=== PATIENT | female | born 1985 | race African-American/Black ===

== ENCOUNTER 2020-05-15 04:59 | Inpatient (IN) ==
[2020-05-15] MEDS ORDERED: FAMOTIDINE 20 MG/2 ML VIAL IV ONE (05:07)
[2020-05-15] MEDS ORDERED: ceFAZolin 2,000 MG in PREMIX 1 EACH IV ONE (05:07)
[2020-05-15] MEDS ORDERED: CITRIC ACID/SODIUM CITRATE 30 ML UDCUP PO ONE (05:07)
[2020-05-15] MEDS ORDERED: OXYTOCIN/LR 20 UNIT/1,000 ML BAG IV ONE ×2 (05:09→08:48)
[2020-05-15] MEDS ORDERED: LACTATED RINGERS 1,000 ML IV SCH (05:30)
[2020-05-15 06:19] LABS: Basophils % 0.1 % (0.0-0.8); Eosinophils % 0.5 % (0.00-10.9); Hematocrit 34.7 VOL% (35.7-47.0); Hemoglobin 12.2 GM/DL (12.0-16.0); Immature Granulocytes Absolute 0.09 #; Lymphocytes # 2.6 10*3/uL (1.4-4.0); Mean Corpuscular HGB Conc 35.2 GM/DL (32-36); Mean Corpuscular Volume 88.1 FL (87-102); Mean Platelet Volume 12.2 FL (9.6-12.0); Monocytes % 7.6 % (1.7-12.7); Neutrophils % 60.8 % (38.7-73.9); Platelet Count 158 T/CUMM (130-400); Red Blood Count 3.94 MC/CUMM (3.8-5.5); Red Cell Distribution Width 12.7 % (9.3-17.3); White Blood Count 8.8 T/CUMM (4-12)
[2020-05-15 06:31] LABS: Albumin 2.6 G/DL (3.4-5.0); Bilirubin,Total 0.8 MG/DL (0.2-1.0); Calcium 8.4 MG/DL (8.5-10.1); Osmolality,Calculated 273.5 MOS/KG (273-304); Total Protein 6.3 G/DL (6.4-8.3)
[2020-05-15] MEDS ORDERED: PHENYLEPHRINE 1 MG/10 ML SYRINGE IV ONE (07:07)
[2020-05-15] MEDS ORDERED: ROPIVACAINE 0.5% 30 ML VIAL ONE (07:07)
[2020-05-15] MEDS ORDERED: DEXAMETHASONE 4 MG/1 ML VIAL ONE (07:08)
[2020-05-15] MEDS ORDERED: KETOROLAC 60 MG/2 ML VIAL IM ONE (07:08)
[2020-05-15] MEDS ORDERED: ONDANSETRON 4 MG/2 ML VIAL ONE (07:08)
[2020-05-15] MEDS ORDERED: BUPIVACAINE SPINAL 0.75% 2 ML AMP SPINAL ONE (07:08)
[2020-05-15] MEDS ORDERED: fentaNYL 100 MCG/2 ML VIAL ONE (07:08)
[2020-05-15] MEDS ORDERED: MORPHINE 10 MG/10 ML VIAL ONE (07:08)
[2020-05-15 08:13] LABS: Cord Arterial Blood HCO3 16.9 MMOL/L
[2020-05-15 08:16] LABS: Cord Venous Blood HCO3 23.3 MMOL/L; Cord Venous Blood PCO2 47.5 MMHG; Cord Venous Blood PO2 23.6 MMHG
[2020-05-15 08:38] LABS: Apearance,Urine CLEAR (Clear); Bacteria,Urine Occasional /HPF (Few); Bilirubin,Urine Negative (Negative); Blood, Urine Negative (Negative); Glucose,Urine (UA) Negative (Negative); Ketones,Urine 5 mg/dL (Negative); Mucus,Urine Occasional /LPF (Occasional); Nitrite,Urine Negative (Negative); Protein,Urine Negative; RBC,Urine 1 /HPF (0-4); Squamous Epithelial Cell,Urine Occasional /HPF (0-10); Urine Color Yellow (Yellow); Urine Specific Gravity 1.012 (1.001-1.035); Urine Urobilinogen < 2.0 EU/DL (0.2-1.0); WBC,Urine <1 /HPF (0-6)
[2020-05-15] MEDS ORDERED: ONDANSETRON 4 MG/2 ML VIAL IV PRN (08:48)
[2020-05-15] MEDS ORDERED: RHO(D) IMMUNE GLOBULIN 300 MCG SYRINGE IM ONE (08:48)
[2020-05-15] MEDS ORDERED: ACETAMINOPHEN 325 MG TABLET PO PRN (08:48)
[2020-05-15] MEDS ORDERED: ceFAZolin 1,000 MG in SYRINGE 1 EACH IV SCH (09:00)
[2020-05-15] MEDS ORDERED: hydrOXYzine HCL 25 MG/1 ML VIAL IM PRN (10:36)
[2020-05-15] MEDS ORDERED: HYDROmorphone 2 MG/1 ML VIAL IV PRN (10:36)
[2020-05-15] MEDS ORDERED: diphenhydrAMINE 50 MG/1 ML VIAL IV PRN (10:36)
[2020-05-15] MEDS: KETOROLAC 30 MG/1 ML VIAL IV SCH ×2 (15:50→21:30)
[2020-05-15] MEDS: ceFAZolin 1,000 MG in SYRINGE 1 EACH IV SCH ×2 (15:51→23:54)
[2020-05-15 16:04] LABS: Basophils % 0.1 % (0.0-0.8); Hematocrit 36.5 VOL% (35.7-47.0); Hemoglobin 12.7 GM/DL (12.0-16.0); Immature Granulocytes % 1.3 %; Immature Granulocytes Absolute 0.22 #; Lymphocytes # 0.9 10*3/uL (1.4-4.0); Lymphocytes % 5.4 % (21.3-54.2); Mean Corpuscular HGB Conc 34.8 GM/DL (32-36); Mean Corpuscular Volume 90.1 FL (87-102); Mean Platelet Volume 12.1 FL (9.6-12.0); Neutrophils % 91.2 % (38.7-73.9); Platelet Count 165 T/CUMM (130-400); Red Blood Count 4.05 MC/CUMM (3.8-5.5); Red Cell Distribution Width 12.7 % (9.3-17.3); White Blood Count 16.4 T/CUMM (4-12)
[2020-05-15 17:01] LABS: Lymphocytes 5 % (20-55); Platelet Estimate Normal; Segmented Neutrophils 94 % (50-85); Total Cells Counted 100
[2020-05-15] MEDS: LACTATED RINGERS 1,000 ML IV SCH ×2 (17:30→17:36)
[2020-05-15] MEDS: IBUPROFEN 800 MG TABLET PO PRN (18:39)
[2020-05-15] MEDS: oxyCODONE/ACETAMINOPHEN 5-325 MG TABLET PO PRN (18:39)
[2020-05-15] MEDS: DOCUSATE SODIUM 100 MG CAPSULE PO SCH (22:02)
[2020-05-16] MEDS: KETOROLAC 30 MG/1 ML VIAL IV SCH ×2 (02:09→08:57)
[2020-05-16] MEDS: IBUPROFEN 800 MG TABLET PO PRN ×2 (03:40→20:03)
[2020-05-16] MEDS: oxyCODONE/ACETAMINOPHEN 5-325 MG TABLET PO PRN ×4 (03:40→22:21)
[2020-05-16 07:00] LABS: Basophils % 0.1 % (0.0-0.8); Hematocrit 30.8 VOL% (35.7-47.0); Hemoglobin 10.9 GM/DL (12.0-16.0); Immature Granulocytes % 2.2 %; Immature Granulocytes Absolute 0.34 #; Lymphocytes # 2.2 10*3/uL (1.4-4.0); Lymphocytes % 13.9 % (21.3-54.2); Mean Corpuscular HGB Conc 35.4 GM/DL (32-36); Mean Corpuscular Volume 89.5 FL (87-102); Mean Platelet Volume 12.7 FL (9.6-12.0); Monocytes % 8.4 % (1.7-12.7); Neutrophils % 75.4 % (38.7-73.9); Platelet Count 164 T/CUMM (130-400); Red Blood Count 3.44 MC/CUMM (3.8-5.5); Red Cell Distribution Width 12.9 % (9.3-17.3); White Blood Count 15.6 T/CUMM (4-12)
[2020-05-16] MEDS: DOCUSATE SODIUM 100 MG CAPSULE PO SCH ×2 (09:00→20:03)
[2020-05-16] MEDS: MULTIVITAMIN (PRENATAL) TABLET PO SCH (09:00)
[2020-05-16] MEDS: MAGNESIUM HYDROXIDE SUSP 30 ML UDCUP PO PRN ×2 (10:12→20:03)
[2020-05-16] MEDS: SIMETHICONE CHEW 80 MG TABLET PO PRN (20:03)
[2020-05-17] MEDS: IBUPROFEN 800 MG TABLET PO PRN (05:58)
[2020-05-17] MEDS: oxyCODONE/ACETAMINOPHEN 5-325 MG TABLET PO PRN (05:58)
[2020-05-17] MEDS ORDERED: BISACODYL 10 MG SUPP RECTAL ONE (08:26)
[2020-05-17] MEDS: MULTIVITAMIN (PRENATAL) TABLET PO SCH (08:40)
[2020-05-17] MEDS: DOCUSATE SODIUM 100 MG CAPSULE PO SCH (08:40)
[2020-05-17] MEDS: SIMETHICONE CHEW 80 MG TABLET PO PRN (08:40)
[2020-05-17 09:13] VITALS: BP 111/77
== END 2020-05-17 12:35 | disposition home or self-care (01) | DRG 785 ==
LOC: N.LD 04:59 → N.OB 14:20
PROVIDERS: ADMIT Obstetrics & Gynecology; ATTEND Obstetrics & Gynecology

== ENCOUNTER 2022-11-04 20:57 | Observation (INO) ==
[2022-11-04] MEDS ORDERED: ONDANSETRON 4 MG/2 ML VIAL IV STA (22:43)
[2022-11-04] MEDS ORDERED: SODIUM CHLORIDE 0.9% 1,000 ML IV STA (22:43)
[2022-11-04 23:40] LABS: Basophils % 0.1 % (0.0-0.8); Eosinophils % 0.1 % (0.00-10.9); Hematocrit 40.6 VOL% (35.7-47.0); Hemoglobin 14.1 GM/DL (12.0-16.0); Immature Granulocytes % 0.5 %; Immature Granulocytes Absolute 0.09 #; Lymphocytes # 0.6 10*3/uL (1.4-4.0); Lymphocytes % 3.2 % (21.3-54.2); Mean Corpuscular HGB Conc 34.7 GM/DL (32-36); Mean Platelet Volume 12.2 FL (9.6-12.0); Monocytes # 1.2 10*3/uL (0.11-0.8); Monocytes % 6.4 % (1.7-12.7); Neutrophils % 89.7 % (38.7-73.9); Platelet Count 246 T/CUMM (130-400); Red Blood Count 4.51 MC/CUMM (3.8-5.5); Red Cell Distribution Width 11.9 % (9.3-17.3); White Blood Count 18.94 T/CUMM (4-12)
[2022-11-05 00:03] LABS: Albumin 4.6 G/DL (3.4-5.0); Bilirubin,Total 1.1 MG/DL (0.20-1.00); Calcium 9.5 MG/DL (8.5-10.1); Potassium 3.3 MMOL/L (3.5-5.1); Total Protein 8.4 G/DL (6.4-8.2)
[2022-11-05] MEDS ORDERED: MORPHINE 2 MG/1 ML SYRINGE IV STA (00:39)
[2022-11-05 00:52] LABS: Bacteria,Urine Few /HPF (Few); Mucus,Urine Many /LPF (Occasional); RBC,Urine 1 /HPF (0-4); Squamous Epithelial Cell,Urine Few /HPF (0-10)
[2022-11-05 00:53] LABS: Urine Appearance Slightly Cloudy (Clear); Urine Color Yellow (Yellow); Urine Specific Gravity >= 1.030 (1.001-1.035)
[2022-11-05 00:54] LABS: Bilirubin,Urine Negative (Negative); Blood, Urine Negative (Negative); Glucose,Urine (UA) Negative (Negative); Ketones,Urine 80 mg/dL (Negative); Nitrite,Urine Negative (Negative); Protein,Urine 100 mg/dL (Negative); Urine Urobilinogen 0.2 eU/dL (<2.0)
[2022-11-05] MEDS ORDERED: HYDROmorphone 1 MG/1 ML SYRINGE IV STA (04:12)
[2022-11-05] MEDS ORDERED: ONDANSETRON 4 MG/2 ML VIAL IV STA (04:13)
[2022-11-05] MEDS ORDERED: LIDOCAINE 1%/EPI INJ 20 ML VIAL ONE (04:34)
[2022-11-05] MEDS ORDERED: BUPIVACAINE MPF 0.25% 10 ML VIAL ONE (04:34)
[2022-11-05] MEDS ORDERED: TISSUE ADHESIVE 1 EACH APPLICATOR TOP ONE (04:34)
[2022-11-05] MEDS ORDERED: fentaNYL 100 MCG/2 ML VIAL ONE (04:42)
[2022-11-05] MEDS ORDERED: propofoL 200 MG/20 ML VIAL IV ONE (05:13)
[2022-11-05] MEDS ORDERED: ONDANSETRON 4 MG/2 ML VIAL ONE (05:13)
[2022-11-05] MEDS ORDERED: DEXAMETHASONE 4 MG/1 ML VIAL ONE (05:13)
[2022-11-05] MEDS ORDERED: LACTATED RINGERS 1,000 ML IV ONE ×2 (05:13→11:56)
[2022-11-05] MEDS ORDERED: SEVOFLURANE 1 UNIT/15 MINUTE INH ONE (05:13)
[2022-11-05] MEDS ORDERED: LIDOCAINE 2% 5 ML VIAL ONE (05:13)
[2022-11-05] MEDS ORDERED: SUCCINYLCHOLINE 200 MG/10 ML VIAL ONE (05:13)
[2022-11-05] MEDS ORDERED: KETOROLAC 30 MG/1 ML VIAL ONE (05:19)
[2022-11-05] MEDS ORDERED: NEOSTIGMINE 10 MG/10 ML VIAL ONE (05:25)
[2022-11-05] MEDS ORDERED: GLYCOPYRROLATE 0.4 MG/2 ML VIAL ONE (05:25)
[2022-11-05] MEDS ORDERED: PHENYLEPHRINE 1 MG/10 ML SYRINGE IV ONE (05:47)
[2022-11-05] MEDS ORDERED: HYDROmorphone 1 MG/1 ML SYRINGE IV PRN (06:57)
[2022-11-05] MEDS ORDERED: ACETAMINOPHEN 325 MG TABLET PO PRN (06:57)
[2022-11-05] MEDS: SODIUM CHLORIDE 0.9% 1,000 ML IV SCH (07:15)
[2022-11-05] MEDS: PIPERACILLIN/TAZOBACTAM 3,375 MG in SODIUM CHLORIDE 0.9% 100 ML IV SCH ×2 (07:20→16:21)
[2022-11-05] MEDS: MORPHINE 2 MG/1 ML SYRINGE IV PRN ×2 (09:18→17:00)
[2022-11-05] MEDS: PANTOPRAZOLE 40 MG VIAL IV SCH (09:18)
[2022-11-05] MEDS: ONDANSETRON 4 MG/2 ML VIAL IV PRN ×2 (09:18→18:51)
[2022-11-05] MEDS ORDERED: MORPHINE 2 MG/1 ML SYRINGE IV PRN (11:40)
[2022-11-06] MEDS: SODIUM CHLORIDE 0.9% 1,000 ML IV SCH ×3 (00:40→07:07)
[2022-11-06] MEDS: PIPERACILLIN/TAZOBACTAM 3,375 MG in SODIUM CHLORIDE 0.9% 100 ML IV SCH ×2 (00:41→08:23)
[2022-11-06] MEDS: KETOROLAC 15 MG/1 ML VIAL IV SCH ×2 (04:51→12:07)
[2022-11-06 05:45] LABS: Basophils % 0.1 % (0.0-0.8); Eosinophils # 0.2 10*3/uL (0.0-0.87); Eosinophils % 1.8 % (0.00-10.9); Hematocrit 26.4 VOL% (35.7-47.0); Hemoglobin 9.2 GM/DL (12.0-16.0); Immature Granulocytes % 0.4 %; Immature Granulocytes Absolute 0.03 #; Lymphocytes # 2.2 10*3/uL (1.4-4.0); Lymphocytes % 25.3 % (21.3-54.2); Mean Corpuscular HGB Conc 34.8 GM/DL (32-36); Mean Corpuscular Volume 92.3 FL (87-102); Mean Platelet Volume 12.4 FL (9.6-12.0); Monocytes # 0.4 10*3/uL (0.11-0.8); Neutrophils % 67.4 % (38.7-73.9); Platelet Count 156 T/CUMM (130-400); Red Blood Count 2.86 MC/CUMM (3.8-5.5); White Blood Count 8.53 T/CUMM (4-12)
[2022-11-06 06:10] LABS: Calcium 7.5 MG/DL (8.5-10.1); Potassium 2.9 MMOL/L (3.5-5.1)
[2022-11-06] MEDS ORDERED: POTASSIUM CHLORIDE 20 MEQ TABLET PO PRN (06:37)
[2022-11-06] MEDS ORDERED: POTASSIUM CHLORIDE 20 MEQ TABLET PO ONE ×2 (07:50→10:00)
[2022-11-06] MEDS: PANTOPRAZOLE 40 MG VIAL IV SCH (08:24)
[2022-11-06 12:09] VITALS: BP 95/58
[2022-11-06 13:54] LABS: Hematocrit 27.6 VOL% (35.7-47.0); Hemoglobin 9.5 GM/DL (12.0-16.0)
== END 2022-11-06 14:50 | disposition home or self-care (01) ==
LOC: N.EDINP 20:57 → N.ED 20:57 → N.3E 11-05 03:45
PROVIDERS: ADMIT Surgery; ATTEND Surgery